=== PATIENT | female | born 1965 | race Caucasian/White ===

== ENCOUNTER → 2017-04-10 | Outpatient (CLI) | payer OTHER, BC ==
[2017-04-10 10:24] LABS: HEMATOCRIT 41.2 % (34.6-47.8); HEMOGLOBIN 13.9 g/dL (11.7-16.4); WHITE BLOOD COUNT 4.7 x10^3/uL (3.4-10)
[2017-04-10 10:35] LABS: ASPARTATE AMINO TRANSFERASE 26 U/L (15-37); BLOOD UREA NITROGEN 14 mg/dL (7-18)
== END | disposition home or self-care (01) ==
LOC: LAB 10:01
PROVIDERS: ATTEND Family Medicine
DX: I10 Essential (primary) hypertension (principal); E55.9 Vitamin D deficiency, unspecified; R73.01 Impaired fasting glucose
CPT/HCPCS: 36415; 80053; 80061; 82306; 85025

== ENCOUNTER → 2017-08-14 | Outpatient (CLI) | payer OTHER, BC ==
[2017-08-14 11:04] LABS: ALANINE AMINOTRANSFERASE 39 U/L (12-78); ALBUMIN 3.4 g/dL (3.4-5.0); ANION GAP 6 mmol/L (5-15); CALCIUM 8.6 mg/dL (8.5-10.1); CHLORIDE 109 mmol/L (98-107)
[2017-08-14 11:06] LABS: ALKALINE PHOSPHATASE 68 U/L (45-117); BILIRUBIN,TOTAL 0.8 mg/dL (0.2-1.0)
[2017-08-14 12:05] LABS: HEMOGLOBIN A1C 5.9 % (4.2-6.3)
== END | disposition home or self-care (01) ==
LOC: LAB 10:34
PROVIDERS: ATTEND Family Medicine
DX: E11.9 Type 2 diabetes mellitus without complications (principal)
CPT/HCPCS: 36415; 80053; 83036

== ENCOUNTER 2017-08-26 09:08 | Inpatient (IN) | payer OTHER, BC ==
[~2017-08-26] VITALS: Ht 147.3 cm; Wt 80.5 kg
[2017-08-26] MEDS ORDERED: NITROGLYCERIN SINGLE TAB 0.4 MG SL ONE (09:37)
[2017-08-26] MEDS ORDERED: ONDANSETRON 2MG/ML, 2ML IVPush ONE (10:00)
[2017-08-26] MEDS ORDERED: SODIUM CHLORIDE FLUSH 10ML SYR IVF ONE (10:00)
[2017-08-26] MEDS ORDERED: MORPHINE SULFATE 4 MG/ML, 1ML IVPush PRN (10:00)
[2017-08-26] MEDS ORDERED: NITROGLYCERIN SINGLE TAB 0.4 MG SL PRN (10:00)
[2017-08-26] MEDS ORDERED: ASPIRIN 81 MG TABLET CHEW PO ONE (10:00)
[2017-08-26] MEDS ORDERED: ASPIRIN 81 MG TABLET CHEW ONE (10:01)
[2017-08-26 10:03] LABS: BASOPHILS # (AUTO) 0.03 x10^3/uL (0-0.1); BASOPHILS % (AUTO) 1 % (0-1); EOSINOPHILS # (AUTO) 0.07 x10^3/uL (0-0.4); EOSINOPHILS % (AUTO) 1 % (1-7); LYMPHOCYTES # (AUTO) 2.13 x10^3/uL (1-3.4); LYMPHOCYTES % (AUTO) 33 % (22-44); MD NO; MEAN CORPUSCULAR HEMOGLOBIN 32.2 pg (27.0-34.8); MEAN CORPUSCULAR HGB CONC 33.8 g/dL (32.4-35.8); MEAN PLATELET VOLUME 8.4 fL (7.4-10.4); MONOCYTES # (AUTO) 0.52 x10^3/uL (0.2-0.8); MONOCYTES % (AUTO) 8 % (2-9); NEUTROPHILS # (AUTO) 3.65 x10^3/uL (1.8-6.8); NEUTROPHILS % (AUTO) 57 % (42-75); PLATELET COUNT 268 x10^3/uL (130-400); RED BLOOD COUNT 4.59 x10^6/uL (3.82-5.3); RED CELL DISTRIBUTION WIDTH 12.6 % (9.6-15.2)
[2017-08-26 10:17] LABS: ALANINE AMINOTRANSFERASE 38 U/L (12-78); ALBUMIN 3.5 g/dL (3.4-5.0); ANION GAP 7 mmol/L (5-15); CALCIUM 8.9 mg/dL (8.5-10.1); CHLORIDE 109 mmol/L (98-107)
[2017-08-26 10:19] LABS: D-DIMER 1.12 ug/mlFEU (0.00-0.52); INTERNATIONAL NORMALIZED RATIO 0.96 (0.93-1.1)
[2017-08-26 10:22] LABS: ALKALINE PHOSPHATASE 72 U/L (45-117); BILIRUBIN,TOTAL 0.5 mg/dL (0.2-1.0); CREATININE 0.87 mg/dL (0.55-1.02); TOTAL PROTEIN 7.1 g/dL (6.4-8.2); TROPONIN I < 0.015 ng/mL (0.000-0.045)
[2017-08-26] MEDS ORDERED: MORPHINE SULFATE 4 MG/ML, 1ML ONE (10:25)
[2017-08-26] MEDS ORDERED: ONDANSETRON 2MG/ML, 2ML ONE (10:26)
[2017-08-26] MEDS ORDERED: OMNIPAQUE 350 MG/ML, 100ML BOTTLE ONE (10:59)
[2017-08-26] MEDS ORDERED: SODIUM CHLORIDE FLUSH 10ML SYR IVF PRN (12:00)
[2017-08-26] MEDS ORDERED: ONDANSETRON ODT 4 MG PO PRN (13:30)
[2017-08-26] MEDS ORDERED: ENOXAPARIN 40 MG/0.4 ML ONE (14:24)
[2017-08-26] MEDS: ENOXAPARIN 40 MG/0.4 ML SQ SCH (14:27)
[2017-08-26 16:10] LABS: TROPONIN I < 0.015 ng/mL (0.000-0.045)
[2017-08-26] MEDS: METHOCARBAMOL 750 MG TABLET PO PRN (17:54)
[2017-08-26] MEDS: ACETAMINOPHEN 325 MG TABLET PO PRN (19:56)
[2017-08-26] MEDS ORDERED: MORPHINE SULFATE 4 MG/ML, 1ML IVPush ONE (20:00)
[2017-08-26 20:46] VITALS: BP 94/60
[2017-08-26 22:57] LABS: TROPONIN I < 0.015 ng/mL (0.000-0.045)
[2017-08-27] MEDS: METHOCARBAMOL 750 MG TABLET PO PRN (00:42)
[2017-08-27 02:00] VITALS: BP 87/52
[2017-08-27 04:08] VITALS: BP 86/49
[2017-08-27] MEDS ORDERED: SODIUM CHLORIDE 0.9%, 500ML IVBOLUS ONE (04:30)
[2017-08-27] MEDS: ASPIRIN 325 MG TABLET EC PO SCH (05:37)
[2017-08-27] MEDS: ACETAMINOPHEN 325 MG TABLET PO PRN (08:53)
[2017-08-27] MEDS ORDERED: LISINOPRIL 10 MG TABLET PO SCH (09:00)
[2017-08-27 09:02] VITALS: BP 106/72
[2017-08-27] MEDS ORDERED: SODIUM CHLORIDE 0.9% 1,000 ML IV SCH (09:30)
[2017-08-27] MEDS ORDERED: REGADENOSON 0.4 MG/5 ML SYRINGE ONE (11:22)
[2017-08-27] MEDS: ENOXAPARIN 40 MG/0.4 ML SQ SCH (13:45)
[2017-08-27 13:52] VITALS: BP 120/65
[2017-08-27 14:30] VITALS: BP 94/59
[2017-08-27 19:11] VITALS: BP 105/71
[2017-08-28] MEDS: ACETAMINOPHEN 325 MG TABLET PO PRN (00:03)
[2017-08-28] MEDS: METHOCARBAMOL 750 MG TABLET PO PRN (00:03)
[2017-08-28 00:07] VITALS: BP 106/71
[2017-08-28] MEDS: ASPIRIN 325 MG TABLET EC PO SCH (05:24)
[2017-08-28 08:00] VITALS: BP 105/72
[2017-08-28 11:53] LABS: FREE T4 (FREE THYROXINE) 0.95 ng/dL (0.76-1.46); THYROID STIMULATING HORMONE 0.612 mIU/L (0.358-3.740)
[2017-08-28 12:59] LABS: MICROSCOPIC AUTO
[2017-08-28 13:00] LABS: CULTURE INDICATED? YES
[2017-08-28] MEDS ORDERED: CYCL5TAB PO (13:24)
[2017-08-28] MEDS ORDERED: ACET325T14 PO (13:24)
== END 2017-08-28 15:20 | disposition home or self-care (01) | DRG 313 ==
LOC: ED 09:46 → EDIP 11:55 → 4WST 17:09
PROVIDERS: ADMIT Internal Medicine; ATTEND Internal Medicine
DX: R07.89 Other chest pain (principal); I25.9 Chronic ischemic heart disease, unspecified; I10 Essential (primary) hypertension; R79.1 Abnormal coagulation profile; Z90.49 Acquired absence of other specified parts of digestive tract
CPT/HCPCS: 36415; 71045; 71275; 78452; 80053; 81001; 82533; 83690; 83880; 84439; 84443; 84484; 85025; 85379; 85610; 85730; 87086; 93005; 93017; 96372; 96374; J1650; J2405; J2785; Q0162; Q9967; A9502; C9898; J7030; J7040

== ENCOUNTER → 2018-02-05 | Outpatient (CLI) | payer BC ==
[~2018-02-05] MED LIST: ACET325T14 PO; CYCL5TAB PO
== END | disposition home or self-care (01) ==
LOC: RAD 12:51
PROVIDERS: ATTEND Family Medicine
DX: M25.461 Effusion, right knee (principal)

== ENCOUNTER → 2018-04-09 | Outpatient (CLI) | payer BC ==
[2018-04-09 10:52] LABS: ALBUMIN 3.5 g/dL (3.4-5.0); ANION GAP 7 mmol/L (5-15); CALCIUM 8.8 mg/dL (8.5-10.1); CHLORIDE 112 mmol/L (98-107)
[2018-04-09 10:55] LABS: ALANINE AMINOTRANSFERASE 31 U/L (12-78); ALKALINE PHOSPHATASE 67 U/L (45-117); BILIRUBIN,TOTAL 0.5 mg/dL (0.2-1.0); CHOL/HDL RATIO 2.6; CHOLESTEROL, TOTAL 158 mg/dL (140-239); CREATININE 0.77 mg/dL (0.55-1.02); HDL CHOL % 38 % (28-40); HDL CHOLESTEROL (DIRECT) 60 mg/dL (40-60); LDL CHOLESTEROL,CALCULATED 78 mg/dL (54-169); LDL/HDL RATIO 1.3 (0.5-3.0); TOTAL PROTEIN 6.7 g/dL (6.4-8.2); TRIGLYCERIDES 100 mg/dL (50-200); VLDL CHOLESTEROL 20 mg/dL (0-25)
[2018-04-09 12:36] LABS: HEMOGLOBIN A1C 5.8 % (4.2-6.3)
== END | disposition home or self-care (01) ==
LOC: LAB 10:07
PROVIDERS: ATTEND Family Medicine
DX: R73.01 Impaired fasting glucose (principal); E55.9 Vitamin D deficiency, unspecified
CPT/HCPCS: 36415; 80053; 80061; 82306; 83036

== ENCOUNTER 2020-04-12 15:39 | Emergency (ER) | payer OTHER ==
[~2020-04-12] VITALS: Ht 160 cm; Wt 85.0 kg
--- NOTE | 2020-04-12 17:04 | NUR ---
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
[2020-04-12 17:20] VITALS: BP 117/78
--- NOTE | 2020-04-12 19:10 | NUR ---
LATE ENTRY DUE TO PATIENT CARE: TASK RN CAITLYN ATTEMPTED TO REMOVE ALEJA, 4 REMOVED WHEN WOUND STARTED TO DEHISS. ERP AWARE AND IN ROOM FOR RE-EVAL. STERI-STRIPS APPLIED TO AREA WHERE ALEJA REMOVED. ALL OTHER ALEJA REMAIN IN PLACE. PATIENT AND DAUGHTER INFORMED TO FOLLOW UP WITH PRIMARY CARE AND VIOLET WHO COMPLETED SURGERY IN ERROL FOR FOLLOW UP CARE. PATIENT AND DAUGHTER VEBALIZE UNDERSTANDING OF DISCHARGE INSTRUCTIONS. AMBULATORY WITH STEADY GAIT TO DISCHARGE
== END 2020-04-12 19:19 | disposition home or self-care (01) ==
LOC: ED 18:37
DX: T81.33XA Disruption of traumatic injury wound repair, initial encounter (principal); Z48.02 Encounter for removal of sutures; Y83.8 Other surgical procedures as the cause of abnormal reaction of the patient, or of later complication, without mention of misadventure at the time of the procedure
CPT/HCPCS: 99281

== ENCOUNTER → 2020-04-15 | Outpatient (CLI) | payer OTHER | END | disposition home or self-care (01) | LOC: RAD 14:03 | PROVIDERS: ATTEND Family Medicine | DX: R10.32 Left lower quadrant pain (principal) | CPT/HCPCS: 74018 ==

== ENCOUNTER 2020-04-18 15:48 | Outpatient (CLI) | payer OTHER ==
[2020-04-18 16:28] LABS: CREATININE 0.72 mg/dL (0.55-1.02)
[2020-04-18] MEDS ORDERED: OMNIPAQUE 350 MG/ML, 100ML BOTTLE ONE (17:39)
[2020-04-19] MEDS ORDERED: FENTANYL PF 100 MCG/2ML ONE (15:51)
== END 2020-04-18 23:59 | disposition home or self-care (01) ==
LOC: RAD 15:48
PROVIDERS: ATTEND Family Medicine
DX: K43.9 Ventral hernia without obstruction or gangrene (principal); Z90.49 Acquired absence of other specified parts of digestive tract
CPT/HCPCS: 36415; 74177; 82565; Q9967; J3010

== ENCOUNTER 2020-04-19 11:54 | Emergency (ER) | payer OTHER ==
[~2020-04-19] VITALS: Ht 152.4 cm; Wt 86.5 kg
[2020-04-19] MEDS ORDERED: SODIUM CHLORIDE FLUSH 10ML SYR IVF ONE (13:00)
--- NOTE | 2020-04-19 13:02 | NUR ---
PT TO ROOM FROM LOBBY
--- NOTE | 2020-04-19 13:06 | NUR ---
THIS IS A 54 YEAR OLD FEMALE WHO WAS SENT BY SURGEON AFTER ABD CT DONE YESTERDAY. PT DENIES PAIN. HERNIA REPAIR ON 04/01/20. CT RESULTS READ ABCESS OR SEROMA.
[2020-04-19 13:12] LABS: BASOPHILS # (AUTO) 0.02 x10^3/uL (0-0.1); BASOPHILS % (AUTO) 0 % (0-1); EOSINOPHILS # (AUTO) 0.16 x10^3/uL (0-0.4); EOSINOPHILS % (AUTO) 3 % (1-7); LYMPHOCYTES # (AUTO) 1.35 x10^3/uL (1-3.4); LYMPHOCYTES % (AUTO) 26 % (22-44); MD NO; MEAN CORPUSCULAR HEMOGLOBIN 32.3 pg (27.0-34.8); MEAN CORPUSCULAR HGB CONC 33.5 g/dL (32.4-35.8); MEAN CORPUSCULAR VOLUME 96.4 fL (80-100); MEAN PLATELET VOLUME 7.7 fL (7.4-10.4); MONOCYTES # (AUTO) 0.28 x10^3/uL (0.2-0.8); MONOCYTES % (AUTO) 5 % (2-9); NEUTROPHILS # (AUTO) 3.44 x10^3/uL (1.8-6.8); NEUTROPHILS % (AUTO) 66 % (42-75); PLATELET COUNT 513 x10^3/uL (130-400); RED BLOOD COUNT 4.06 x10^6/uL (3.82-5.3); RED CELL DISTRIBUTION WIDTH 13.5 % (9.6-15.2)
[2020-04-19 13:21] LABS: CALCIUM 9.3 mg/dL (8.5-10.1); CHLORIDE 108 mmol/L (98-107)
[2020-04-19 13:28] LABS: ALANINE AMINOTRANSFERASE 27 U/L (12-78); ALKALINE PHOSPHATASE 90 U/L (45-117); BILIRUBIN,TOTAL 0.4 mg/dL (0.2-1.0); CREATININE 0.83 mg/dL (0.55-1.02); TOTAL PROTEIN 7.1 g/dL (6.4-8.2)
[2020-04-19 13:30] LABS: ANION GAP 5 mmol/L (5-15)
[2020-04-19] MEDS ORDERED: VANCOMYCIN PMX 1GM/200ML 200 ML IV ONE (14:30)
--- NOTE | 2020-04-19 15:17 | NUR ---
IV ABX STARTED. IR NURSE AT BEDSIDE. PT RESTING ON [employer] W/ CALL LIGHT IN REACH AND FAMILY AT BEDSIDE.
[2020-04-19] MEDS ORDERED: LIDOCAINE 1%, 10ML ONE (15:44)
--- NOTE | 2020-04-19 16:08 | NUR ---
PT IN IR.
--- NOTE | 2020-04-19 16:20 | NUR ---
REPORT FROM JOSHUA RN IN IR. JOSHUA RN REPORTS PT RECEIVED 50MCG FENTANYL. 170CC RED FLUID DRAINED FROM ABCESS. VITALS STABLE. PT IN NO ACUTE DISTRESS.
[2020-04-19] MEDS ORDERED: DIPHENHYDRAMINE 50 MG/ML, 1ML ONE (16:22)
--- NOTE | 2020-04-19 16:28 | NUR ---
PT RETURNED FROM IR W/ RASH PRESENT ON FACE AND C/O ITCHING. UPDATED. PT MEDICATED PER EMAR. AT BEDSIDE FOR RECHECK.
[2020-04-19 16:29] VITALS: BP 119/64
[2020-04-19] MEDS ORDERED: DIPHENHYDRAMINE 50 MG/ML, 1ML IVPush ONE (16:30)
--- NOTE | 2020-04-19 17:00 | NUR ---
pt reports relief of s/s w/ meds. alis.
[2020-04-19] MEDS ORDERED: NEOSPORIN OINT. PKT 1 PACKET ONE (17:17)
--- NOTE | 2020-04-19 17:41 | NUR ---
Patient given discharge instructions and they have confirmed that they understand the instructions. Patient ambulatory with steady gait.
== END 2020-04-19 17:43 | disposition home or self-care (01) ==
LOC: ED 13:22
DX: K91.872 Postprocedural seroma of a digestive system organ or structure following a digestive system procedure (principal); R94.31 Abnormal electrocardiogram [ECG] [EKG]
CPT/HCPCS: 10030; 36415; 76942; 80053; 83605; 85025; 87040; 87070; 87075; 87205; 93005; 96365; 96375; 99285; J1200; J3370; J3490

== ENCOUNTER → 2020-06-28 | Outpatient (CLI) | payer OTHER ==
[~2020-06-28] MED LIST changes: +OMNIPAQUE 350 MG/ML, 100ML BOTTLE ONE
== END | disposition home or self-care (01) ==
LOC: CFH 09:11
PROVIDERS: ATTEND Surgery
DX: K43.2 Incisional hernia without obstruction or gangrene (principal); Z90.49 Acquired absence of other specified parts of digestive tract
CPT/HCPCS: 74177; Q9967